=== PATIENT | female | born 1950 | race Caucasian/White ===

== ENCOUNTER → 2021-03-25 00:01 | Outpatient (CLI) | payer MEDICARE, BC, SELFPAY ==
[2021-03-25 18:21] LABS: SARS-CoV-2 RNA PCR Negative
== END ==
PROVIDERS: Visit Provider Urology
DX: Z01.812 Encounter for preprocedural laboratory examination (principal); Z20.822 Contact with and (suspected) exposure to COVID-19
CPT/HCPCS: C9803; U0003; U0005

== ENCOUNTER 2021-03-25 07:41 | Outpatient (CLI) | payer MEDICARE, BC, SELFPAY ==
[2021-03-25 08:45] LABS: INR 0.9; Prothrombin Time 12.9 Seconds (11.1-14.7)
[2021-03-25 09:02] LABS: Partial Thromboplastin Time 29.7 SECONDS (22.3-36.8)
== END 2021-03-25 07:42 | disposition home or self-care (01) ==
PROVIDERS: PCP Family Medicine; Visit Provider Urology
DX: Z01.818 Encounter for other preprocedural examination (principal); N20.1 Calculus of ureter
CPT/HCPCS: 36415; 85610; 85730; 87086; 87088; C9803; U0003; U0005

== ENCOUNTER 2021-03-27 01:58 | Day surgery (SDC) | payer MEDICARE, BC, SELFPAY ==
[2021-03-24 15:10] VITALS: BMI 35.6
--- NOTE | 2021-03-26 16:06 | WPDANESEPPF ---
Anes - Initial Pre Proc Eval Procedure: Operation Date: 03/27/21 11:30 Proposed Procedures p Possible Cystoscopy, Retrograde Pyelogram, Right Ureteroscopy, Right Stone Extraction, Possible Stent Placement - Enrique Mckeon MD s Right Extracorporeal Shock Wave Lithotripsy - Enrique Mckeon MD s Possible Holmium Laser Procedure - Enrique Mckeon MD Date/Time: 03/26/21 16:06 Surgeon: Enrique Mckeon MD Pre Op Diagnosis: Right Ureteral Stone, Patient Data Age: 70 Gender: F Height: 1.78 m Weight: 112.72 kg Allergies Allergy/AdvReac Type Severity Reaction Status Date / Time iodine AdvReac TOPICAL - Verified 03/24/21 14:58 SKIN IRRITATION Home Medications Medication Instructions Recorded Confirmed Type atenolol 50 mg QAM 03/24/21 03/24/21 History escitalopram oxalate 20 mg HS 03/24/21 03/24/21 History glipizide 5 mg QAM 03/24/21 03/24/21 History hydrocodone-acetaminophen 1 tablet Q1-4H PRN 03/24/21 03/24/21 History hyoscyamine sulfate 0.125 mg TID 03/24/21 03/24/21 History lorazepam 1 mg BID PRN 03/24/21 03/24/21 History meloxicam 15 mg DAILY 03/24/21 03/24/21 History metformin 1,000 mg BID 03/24/21 03/24/21 History pravastatin 80 mg HS 03/24/21 03/24/21 History sulfamethoxazole-trimethoprim 1 tablet BID 03/24/21 03/24/21 History tolterodine 2 mg PO HS 03/24/21 03/24/21 History Patient hx anesthesia problems: none Family hx anesthesia problems: none PMFSH Past Medical History Medical History Anxiety Arthritis Diabetes HTN (hypertension) Hyperlipidemia MVP (mitral valve prolapse) Obesity Social History Social History Smoking status: Never smoker Second hand tobacco smoke exposure: No Alcohol intake: never Substance use: never Substance use type: does not use Living arrangements: alone Spiritual care concerns: No Anes - Eval Final PreProcedure Day of Procedure 03/26/21 16:06 Patient weight: obese Heart: regular rate and rhythm Lungs: clear to auscultation and normal air movement Airway: Mallampati scale class II Neurological: alert and oriented Last oral intake: >/= 8 hours ASA classification: III Emergent: no Anesthetic plan: proceed Anesthesia type and monitoring: general LMA Informed Consent: The patient's anesthetic plan and its attendant risks and benefits were discussed with the patient/family/POA. Questions were solicited and answers provided to the satisfaction of the patient/family/POA.
[2021-03-27] VITALS (10 sets, daily range): BP systolic 120–152; BP diastolic 53–83; PULSE 55–66; RESP 13–20; TEMP 36.8; O2SAT 92–99
--- NOTE | ~2021-03-27 | XR_ITS ---
XR abdomen/kub 1V 03/27/2021 09:40 INDICATION: Lithotripsy. Renal stones. TECHNIQUE: KUB COMPARISON: No prior studies for comparison. FINDINGS: Bowel gas pattern is normal. There is no evidence of free air, mass, organomegaly, ascites or obstruction. There are right pelvic calcifications which may represent phleboliths, although dist al ureteral stone is not excluded. The bones appear intact. IMPRESSION: 1: Right pelvic calcifications which may represent phleboliths, although distal ureteral stone is not excluded. Reviewed, dictated and finalized at location B.
--- NOTE | ~2021-03-27 | XR_ITS ---
EXAMINATION: XR retrograde pyelo w/stent RT DATE: 03/27/2021 11:20 INDICATION: Right internal ureteral stent placement TECHNIQUE: Fluoroscopic images from a right internal ureteral stent placement are submitted for john mo 24 seconds of fluoroscopy time. 7 fluoroscopic images. FINDINGS: There is a right double-J internal ureteral stent projecting in expected position, with proximal [place] loop at the level of the renal pelvis and distal loop in the pelvis within the bladder lumen. IMPRESSION: 1. Right internal ureteral stent placement. Please refer to real-time procedural findings for radu samuel. Reviewed, dictated and finalized at location B. IMPRESSION: 1. Right internal ureteral stent placement. Please refer to real-time procedu ral findings for details.
--- NOTE | 2021-03-27 09:53 | P.HP_ITS ---
H&P: HPI History of Present Illness Date/Time: 03/27/21 09:53 Chief Complaint: right ureteral calculus Narrative: 70 year old female with right ureteral calculus which has migrated to the distal ureter. Here for definitive treatment Review of Systems Review of Systems: All systems reviewed & are unremarkable except as noted in HPI and below [facility] Past Medical History Medical History Anxiety Arthritis Diabetes HTN (hypertension) Hyperlipidemia MVP (mitral valve prolapse) Obesity Social History Social History Smoking status: Never smoker Second hand tobacco smoke exposure: No Alcohol intake: never Substance use: never Substance use type: does not use Living arrangements: alone Spiritual care concerns: No Meds Home Medications and Allergies Home Medications Medication Instructions Recorded Confirmed Type atenolol 50 mg QAM 03/24/21 03/24/21 History escitalopram oxalate 20 mg HS 03/24/21 03/24/21 History glipizide 5 mg QAM 03/24/21 03/24/21 History hydrocodone-acetaminophen 1 tablet Q1-4H PRN 03/24/21 03/24/21 History hyoscyamine sulfate 0.125 mg TID 03/24/21 03/24/21 History lorazepam 1 mg BID PRN 03/24/21 03/24/21 History meloxicam 15 mg DAILY 03/24/21 03/24/21 History metformin 1,000 mg BID 03/24/21 03/24/21 History pravastatin 80 mg HS 03/24/21 03/24/21 History sulfamethoxazole-trimethoprim 1 tablet BID 03/24/21 03/24/21 History tolterodine 2 mg PO HS 03/24/21 03/24/21 History Allergies Allergy/AdvReac Type Severity Reaction Status Date / Time iodine AdvReac TOPICAL - Verified 03/24/21 14:58 SKIN IRRITATION Exam Const: General: cooperative Eyes: General: appearance normal, both eyes and all related structures Chest: Chest palpation & inspection: normal inspection of the chest Resp: Effort & Inspection: normal respiratory effort Cardio: Rate: regular rate Rhythm: regular rhythm GI: Inspection: normal to inspection Assessment and Plan Assessment and plan (1) Right ureteral calculus: Code(s): N20.1 - Calculus of ureter Status: Acute Assessment and Plan: cystoscopy, right retrograde, right ureteroscopy with stone extraction, possible laser and stent placement.
--- NOTE | 2021-03-27 10:00 | ECG_ITS ---
Measurements Intervals [place] Rate: 69 P: 38 OK: 218 QRS: -33 QRSD: 91 T: 13 QT: 374 QTc: 403 Interpretive Statements SINUS RHYTHM WITH FIRST DEGREE AV BLOCK LEFT AXIS DEVIATION DELAYED PRECORDIAL R/S TRANSITION BASELINE ARTIFACT- I, II, III, AVR, AVL, AVF, V6 ABNORMAL ECG Electronically Signed On 03-27-2021 14:26:47 CDT by Naresh Beard D.O.
--- NOTE | 2021-03-27 10:02 | WPDHPUPDATE1 ---
History and Physical Update Update Date/Time: 03/27/21 10:02 History and Physical has been reviewed, including an updated exam of the patient. There are NO changes in the patient's condition. Risks, benefits, and alternatives have been discussed and questions answered. Patient agrees to proceed with procedure.
[2021-03-27] MEDS: LACTATED RINGERS 1,000 ML 30 ML IV CONT (10:25)
[2021-03-27 10:35] LABS: Glucose Point of Care 210 (65-105)
[2021-03-27] MEDS: ceFAZolin 2 GM/D5W 50 ML 2 GM/50 ML BAG IVPB (10:44)
[2021-03-27 10:58] LABS: Anion Gap 5 mmol/L (8-16); Blood Urea Nitrogen 25 mg/dL (7-17); Calcium 9.8 mg/dL (8.4-10.2); Carbon Dioxide 29 mmol/L (22-30); Chloride 100 mmol/L (98-107); Estimated CRCL calculation 44 ml/min; Estimated Glomerular Filt Rate 37; Glucose 225 mg/dL (65-105); Sodium 134 mmol/L (137-145)
[2021-03-27] MEDS: LIDOCAINE HCL 2% GEL UROJET 10 ML PKG MUCOUS MEM (11:17)
--- NOTE | 2021-03-27 11:22 | P.OP_ITS ---
Procedure Note - Detailed Date of procedure: 03/27/21 Pre-op diagnosis: Right Ureteral Stone, Post-op diagnosis: same Procedure performed: Cystoscopy, right retrograde pyelogram, right ureteroscopy with laser, stone extraction, right ureteral stent placement 4.8 [place] contour Description of procedure: Patient is taken the operative suite and correctly identified. Once anesthesia was obtained she was placed in dorsal lithotomy position and prepped and draped usual sterile fashion. Nineteen [place] scope inserted in the bladder. No tumors noted. The right year orifice was cannulated with a guidewire. We dilated the orifice with an 8/10 dilator. Rigid ureteral scope was inserted. The stone was visualized was too large to retrieve 1 piece. Using a 273 micron fiber we fragments stone multiple pieces and then extract them using an escape basket. Reinspection revealed no residual stones. Pyelogram was then performed to confirm placement of the stent. 4.8 [place] contour stent was then placed with the proximal end coiled in the renal pelvis and distal in bladder. 2% viscous lidocaine was inserted into the urethra and patient is taken recovery room stable condition. She will follow up next week for stent removal. Anesthesia: GLMA Surgeon: Enrique Mckeon MD Drains: Yes Packing: No Pathology: yes Complications: No immediate complications Condition: stable Disposition: PACU
[2021-03-27] MEDS: fentaNYL CITRATE INJ (*CRX) 100 MCG/2 ML VIAL 25 MCG IV PUSH (11:58)
--- NOTE | 2021-03-27 12:40 | SUR.PHASEI ---
1235- pt taken per stretcher to [facility].
[2021-03-27] MEDS: oxyCODONE HCL (*CRX) 5 MG TAB IR PO (13:10)
== END 2021-03-27 13:52 | disposition home or self-care (01) ==
PROVIDERS: Anesthesiology; PCP Family Medicine; Visit Provider Urology
PROC: (CPT 52352; principal; 2021-03-27 11:30)
PROC: (CPT 52356; 2021-03-27 11:30)
DX: N20.1 Calculus of ureter (principal); Z79.84 Long term (current) use of oral hypoglycemic drugs; F41.9 Anxiety disorder, unspecified; M19.90 Unspecified osteoarthritis, unspecified site; I10 Essential (primary) hypertension; E78.5 Hyperlipidemia, unspecified; I34.1 Nonrheumatic mitral (valve) prolapse; E66.9 Obesity, unspecified; Z68.34 Body mass index [BMI] 34.0-34.9, adult; I44.0 Atrioventricular block, first degree
CPT/HCPCS: 52356; 36415; 74018; 74420; 80048; 82365; 82948; 88300; 93005; A9270; C1769; C2617; J0690; J2405; J2704; J3010; J7120; Q9966